=== PATIENT | female | born 1940 | race Caucasian/White ===

== ENCOUNTER 2017-12-17 07:20 | Emergency (ER) | payer MEDICARE ==
[2017-12-17 08:30] VITALS: TEMP 97.7
--- NOTE | 2017-12-17 09:03 | ED ---
ENT HPI - General Chief complaint: ENT Stated complaint: Nosebleed Time Seen by Provider: 12/17/17 07:33 Source: patient, family, EMS Mode of arrival: EMS Limitations: no limitations - History of Present Illness Initial comments: 77 years O female presents with a nosebleed, it started about an hour ago cording to the family and the patient she is not on any blood thinner she does have a history of hypertension and COPD he also has a history of CVA or TIA and diabetes in the past she denies any trauma to the nose. Review of system is negative for any headaches no chest pain or shortness of breath no abdominal pain no frequency urgency dysuria she does use home oxygen - Related Data Home Medications Medication Instructions Recorded Confirmed Aspirin [Adult Low Dose Aspirin EC] 81 mg PO DAILY 12/17/17 12/17/17 Atorvastatin [Lipitor] 80 mg PO HS 12/17/17 12/17/17 Lansoprazole 15 mg PO DAILY 12/17/17 12/17/17 Levothyroxine Sodium [Synthroid] 112 mcg PO DAILY 12/17/17 12/17/17 Magnesium Oxide [Patricia] 500 mg PO DAILY 12/17/17 12/17/17 Methenamine Hippurate 1 gm PO DAILY 12/17/17 12/17/17 Sodium Bicarbonate Tab 650 mg PO BID 12/17/17 12/17/17 Trospium Chloride [Sanctura XR] 60 mg PO DAILY 12/17/17 12/17/17 diphenhydrAMINE HCL 50 mg PO HS 12/17/17 12/17/17 [Diphenhydramine HCl] Previous Rx's Medication Instructions Recorded Cephalexin [Keflex] 500 mg PO Q6HR #40 cap 12/17/17 Allergies Allergy/AdvReac Type Severity Reaction Status Date / Time Penicillins Allergy Unknown Verified 12/17/17 08:12 Review of Systems ROS Statement: Those systems with pertinent positive or pertinent negative responses have been documented in the HPI. ROS Other: All systems not noted in ROS Statement are negative. Past Medical History Past Medical History: CVA/TIA, Dementia, Diabetes Mellitus, Hypertension Additional Past Medical History / Comment(s): Per caregiver - has dementia; ileostomy History of Any Multi-Drug Resistant Organisms: None Reported Past Surgical History: Bowel Resection Past Psychological History: Anxiety Smoking Status: Former smoker Past Alcohol Use History: None Reported Past Drug Use History: None Reported General Exam - General Exam Comments Initial Comments: General: The patient is awake and alert, in no distress, and does not appear acutely ill. Skin: Skin is warm and dry and no rashes or lesions are noted. Eye: Pupils are equal, round and reactive to light, extra-ocular movements are intact; there is normal conjunctiva bilaterally. Ears, nose, mouth and throat: Some bleeding from the both nostrils left more than the right Neck: The neck is supple, there is no tenderness or JVD. Cardiovascular: There is a regular rate and rhythm. No murmur, rub or gallop is appreciated. Respiratory: To auscultation bilateral, no wheezing no rhonchi no distress respiratory vital noticed Gastrointestinal: Soft, non-distended, non-tender abdomen without masses or organomegaly noted. There is no rebound or guarding present. Bowel sounds are unremarkable. Back: There is no tenderness to palpation in the midline. There is no obvious deformity. Musculoskeletal: Normal ROM, no tenderness, There is no pedal edema. There is no calf tenderness or swelling. No cords were appreciated. Neurological: CN II-XII intact, Cranial nerves III through XII are intact. There are no obvious motor or sensory deficits. Coordination appears grossly intact. Speech is normal. Psychiatric: Cooperative, appropriate mood & affect, normal judgment. Limitations: no limitations Course Vital Signs 12/17/17 12/17/17 07:24 08:16 Temperature 96.5 F L 97.7 F Pulse Rate 120 H 104 H Respiratory 20 18 Rate Blood Pressure 128/73 102/55 O2 Sat by Pulse 87 L 94 L Oximetry Is in the packing was done on the both sides after suction with the [place] patient was observed for about an hour after the packing there was no bleeding after that she be discharged home to come back for the removal of the packing every 6 hours or return to the ER if bleeding or nosebleeds the course Disposition Clinical Impression: Epistaxis, Sinusitis Disposition: HOME SELF-CARE Condition: Good Instructions: Nosebleed (ED) Additional Instructions: Current to the ER for the removal of the packing in 36 hours Prescriptions: Cephalexin [Keflex] 500 mg PO Q6HR #40 cap Is patient prescribed a controlled substance at d/c from ED?: No When asked, does pt state using other controlled substances?: No If prescribed controlled substance>3 days was MAPS reviewed?: No If opioid is for acute pain is fill amount 7 days or less?: No If Rx opioid, was Start Talking consent form obtained?: No Referrals: Diego Bhardwaj DO [Primary Care Provider] - 1-2 days
[2017-12-17 09:27] VITALS: BP 103/61; PULSE 98; RESP 16
--- NOTE | 2017-12-20 08:37 | CDI ---
Documentation Clarification OP Dear Clarissa ALMODOVAR MD As reviewed the chart, the packing material is not documented. Please provide the addendum for packing material to code the procedure. Thank you, Maggie Fong Thread Drawer If you have any question, Please contact information systems security manager at [phone] [facility]
== END 2017-12-17 09:23 | disposition home or self-care (01) ==
LOC: EC 07:20
DX: R04.0 Epistaxis (principal); J32.9 Chronic sinusitis, unspecified; Z86.73 Personal history of transient ischemic attack (TIA), and cerebral infarction without residual deficits; Z87.891 Personal history of nicotine dependence; Z79.82 Long term (current) use of aspirin; Z79.899 Other long term (current) drug therapy; Z88.0 Allergy status to penicillin
CPT/HCPCS: 30901; 99283

== ENCOUNTER 2017-12-17 21:04 | Emergency (ER) | payer MEDICARE ==
[2017-12-17 21:19] VITALS: BP 110/70; PULSE 112; RESP 20; TEMP 98.7
[2017-12-17] MEDS ORDERED: OXYMETAZOLINE 0.05% NASL SPRAY 1 SPRAY BOTTLE NASAL STA (21:56)
[2017-12-17] MEDS ORDERED: OXYMETAZOLINE 0.05% NASL SPRAY 1 SPRAY BOTTLE ONE (21:57)
--- NOTE | 2017-12-17 22:03 | ED ---
General Adult HPI - General Chief complaint: ENT Stated complaint: Nose Bleed Time Seen by Provider: 12/17/17 21:41 Source: patient, family, RN notes reviewed, old records reviewed Mode of arrival: ambulatory Limitations: no limitations - History of Present Illness Initial comments: Chief complaint history of present illness a 77-year-old female here with her son. The patient was in emergency room earlier this morning and epistaxis. At that time was treated with bilateral Merocel. Son reports that he was told to return in 36 hours to have the packing removed or see his family doctor or return emergency room should the bleeding. He did notice that there was some bleeding through the edges through the dampened sponges. They have not been placing any Afrin drops. - Related Data Home Medications Medication Instructions Recorded Confirmed Aspirin [Adult Low Dose Aspirin EC] 81 mg PO DAILY 12/17/17 12/17/17 Atorvastatin [Lipitor] 80 mg PO HS 12/17/17 12/17/17 Lansoprazole 15 mg PO DAILY 12/17/17 12/17/17 Levothyroxine Sodium [Synthroid] 112 mcg PO DAILY 12/17/17 12/17/17 Magnesium Oxide [Patricia] 500 mg PO DAILY 12/17/17 12/17/17 Methenamine Hippurate 1 gm PO DAILY 12/17/17 12/17/17 Sodium Bicarbonate Tab 650 mg PO BID 12/17/17 12/17/17 Trospium Chloride [Sanctura XR] 60 mg PO DAILY 12/17/17 12/17/17 diphenhydrAMINE HCL 50 mg PO HS 12/17/17 12/17/17 [Diphenhydramine HCl] Previous Rx's Medication Instructions Recorded Cephalexin [Keflex] 500 mg PO Q6HR #40 cap 12/17/17 Allergies Allergy/AdvReac Type Severity Reaction Status Date / Time Penicillins Allergy Unknown Verified 12/17/17 21:18 Review of Systems ROS Statement: Those systems with pertinent positive or pertinent negative responses have been documented in the HPI. Review of systems no other complaints other than the son saying that there was some bleeding around the sponges when she sneezed. Currently none. Review of vital signs within normal limits blood pressure 110/70. Pulse ox 94% room air. The patient is on oxygen 24 7. Its been through a nasal cannula without being aerosolized so son is doing this at home. ROS Other: All systems not noted in ROS Statement are negative. Past Medical History Past Medical History: CVA/TIA, Dementia, Diabetes Mellitus, Hypertension Additional Past Medical History / Comment(s): Per caregiver - has dementia; ileostomy History of Any Multi-Drug Resistant Organisms: None Reported Past Surgical History: Bowel Resection Past Psychological History: Anxiety Smoking Status: Former smoker Past Alcohol Use History: None Reported Past Drug Use History: None Reported General Exam - General Exam Comments Initial Comments: Physical exam Pertinent to the repeat visit his bleeding around the gauze inserted in both nares for epistaxis this morning. No bleeding at this time. Vital signs temp 98.7 pulse 112 respiratory rate 20 pulse ox 94% room air. Blood pressure 110/ 70. No difficulty breathing. The patient will have Afrin drops placed in both nares on the Merocel sponges every several hours. I explained to the son that there will be some dripping of blood tinged fluid. He is to follow-up with emergency room have these removed in 36 hours or earlier as needed. Limitations: no limitations Course Vital Signs 12/17/17 21:15 Temperature 98.7 F Pulse Rate 112 H Respiratory 20 Rate Blood Pressure 110/70 O2 Sat by Pulse 94 L Oximetry Medical Decision Making - Medical Decision Making Medical decision-making. Patient's son brought her back because he noticed some bleeding from the sponges when she sneezed. There is no pulsatile bleeding and there is no bleeding posteriorly. Examination finds the Merocel packing to be effective. A small amount of blood is noted when she does sneezed hard. The sponges were gently pressed and 8 blood-tinged fluid removed. I instilled several drops of Afrin in both sponges and told the son to continue do this every several hours at home. He is to gently squeeze the sponges to get the old fluid out and to expect a small amount of blood-tinged fluid when doing so. Disposition Clinical Impression: Recurrent epistaxis Disposition: HOME SELF-CARE Condition: Fair Instructions: Nosebleed (ED) Additional Instructions: Put several drops of Afrin on each nasal sponge as directed. Gently blot the sponges to remove the excess fluid. Return in 36 hours here to have the sponges removed or 3 your family physician. Is patient prescribed a controlled substance at d/c from ED?: No Referrals: Diego Bhardwaj DO [Primary Care Provider] - 1-2 days Time of Disposition: 22:03
== END 2017-12-17 22:09 | disposition home or self-care (01) ==
LOC: EC 21:04
DX: R04.0 Epistaxis (principal); I10 Essential (primary) hypertension; Z87.891 Personal history of nicotine dependence; Z86.73 Personal history of transient ischemic attack (TIA), and cerebral infarction without residual deficits; Z79.82 Long term (current) use of aspirin; Z79.899 Other long term (current) drug therapy; Z88.0 Allergy status to penicillin
CPT/HCPCS: 99283

== ENCOUNTER 2017-12-19 13:09 | Emergency (ER) | payer MEDICARE ==
[2017-12-19 13:18] VITALS: BP 105/58; PULSE 95; RESP 18; TEMP 98
--- NOTE | 2017-12-19 14:52 | ED ---
General Adult HPI - General Chief complaint: ENT Stated complaint: needs nose plugs removed-revisit Time Seen by Provider: 12/19/17 14:22 Source: patient, family, RN notes reviewed, old records reviewed Mode of arrival: EMS Limitations: physical limitation - History of Present Illness Initial comments: This is a 77-year-old female the ER for evaluation of, no step and removal. Patient had episodic nosebleed 2-3 days ago, she is coming in today for packing removal. She denies any complaints no active bleeding - Related Data Home Medications Medication Instructions Recorded Confirmed Aspirin [Adult Low Dose Aspirin EC] 81 mg PO DAILY 12/17/17 12/19/17 Atorvastatin [Lipitor] 80 mg PO HS 12/17/17 12/19/17 Levothyroxine Sodium [Synthroid] 112 mcg PO DAILY 12/17/17 12/19/17 Methenamine Hippurate 1 gm PO DAILY 12/17/17 12/19/17 Sodium Bicarbonate Tab 650 mg PO BID 12/17/17 12/19/17 Trospium Chloride [Sanctura XR] 60 mg PO DAILY 12/17/17 12/19/17 diphenhydrAMINE HCL 50 mg PO HS 12/17/17 12/19/17 [Diphenhydramine HCl] Acetaminophen Tab [Tylenol Tab] 325 mg PO Q4H PRN 12/19/17 12/19/17 Albuterol Nebulized [Ventolin 2.5 mg INHALATION RT-Q4H 12/19/17 12/19/17 Nebulized] Cyanocobalamin [Vitamin B-12] 500 mcg PO DAILY 12/19/17 12/19/17 Insulin Detemir [Levemir Flextouch] 20 units SQ HS 12/19/17 12/19/17 Magnesium Oxide [Mag-Ox] 400 mg PO DAILY 12/19/17 12/19/17 Tolterodine Tartrate [Detrol LA] 4 mg PO DAILY 12/19/17 12/19/17 Previous Rx's Medication Instructions Recorded Cephalexin [Keflex] 500 mg PO Q6HR #40 cap 12/17/17 Allergies Allergy/AdvReac Type Severity Reaction Status Date / Time Penicillins Allergy Unknown Verified 12/19/17 14:16 Review of Systems ROS Statement: Those systems with pertinent positive or pertinent negative responses have been documented in the HPI. ROS Other: All systems not noted in ROS Statement are negative. Past Medical History Past Medical History: CVA/TIA, Dementia, Diabetes Mellitus, Hypertension Additional Past Medical History / Comment(s): Per caregiver - has dementia; ileostomy History of Any Multi-Drug Resistant Organisms: None Reported Past Surgical History: Bowel Resection Past Psychological History: Anxiety Smoking Status: Former smoker Past Alcohol Use History: None Reported Past Drug Use History: None Reported General Exam - General Exam Comments Initial Comments: Bilateral nose packing is present Limitations: physical limitation General appearance: alert, in no apparent distress Head exam: Present: atraumatic, normocephalic, normal inspection Eye exam: Present: normal appearance, PERRL, EOMI. Absent: scleral icterus, conjunctival injection, periorbital swelling ENT exam: Present: normal exam, mucous membranes moist Neck exam: Present: normal inspection. Absent: tenderness, meningismus, lymphadenopathy Respiratory exam: Present: normal lung sounds bilaterally. Absent: respiratory distress, wheezes, rales, rhonchi, stridor Cardiovascular Exam: Present: regular rate, normal rhythm, normal heart sounds. Absent: systolic murmur, diastolic murmur, rubs, gallop, clicks GI/Abdominal exam: Present: soft, normal bowel sounds. Absent: distended, tenderness, guarding, rebound, rigid Extremities exam: Present: normal inspection, full ROM, normal capillary refill. Absent: tenderness, pedal edema, joint swelling, calf tenderness Back exam: Present: normal inspection Neurological exam: Present: alert, oriented X3, CN II-XII intact Psychiatric exam: Present: normal affect, normal mood Skin exam: Present: warm, dry, intact, normal color. Absent: rash Course Vital Signs 12/19/17 13:14 Temperature 98.0 F Pulse Rate 95 Respiratory 18 Rate Blood Pressure 105/58 O2 Sat by Pulse 97 Oximetry - Reevaluation(s) Reevaluation #1: Packing is removed without difficulty Medical Decision Making - Medical Decision Making 68 female the ER forremoval, packing is removed without difficulty. Patient to be discharged home, currently a symptomatically with no bleeding Disposition Clinical Impression: Epistaxis Narrative: Nasal Packing Removal Disposition: HOME SELF-CARE Condition: Good Instructions: Nosebleed (ED) Is patient prescribed a controlled substance at d/c from ED?: No Referrals: Diego Bhardwaj DO [Primary Care Provider] - 1-2 days
== END 2017-12-19 15:08 | disposition home or self-care (01) ==
LOC: EC 13:09
DX: R04.0 Epistaxis (principal); I10 Essential (primary) hypertension; E11.9 Type 2 diabetes mellitus without complications; F03.90 Unspecified dementia, unspecified severity, without behavioral disturbance, psychotic disturbance, mood disturbance, and anxiety; Z87.891 Personal history of nicotine dependence; Z79.4 Long term (current) use of insulin; Z79.82 Long term (current) use of aspirin; Z79.899 Other long term (current) drug therapy; Z88.0 Allergy status to penicillin
CPT/HCPCS: 99282

== ENCOUNTER → 2018-04-04 | Outpatient (CLI) | payer MEDICARE ==
--- NOTE | 2018-04-04 15:06 | US ---
EXAMINATION TYPE: US kidneys/renal and bladder DATE OF EXAM: 04/04/2018 COMPARISON: NONE CLINICAL HISTORY: 78-year-old female Stage IV Chronic Kidney Disease N18.4. CKD stage 4. History of k idney stones TECHNIQUE: Multiple sonographic images of the kidneys and bladder are obtained. FINDINGS: EXAM MEASUREMENTS: Right Kidney: 9.8 x 4.4 x 4.5 cm Left Kidney: 11.1 x 4.7 x 4.4 cm PER DIEM REGISTERED NURSE NOTES:Technical limitations due to large amount of overlying bowel content Right Kidney: multiple cortical cysts are demonstrated, largest = 2.7 x 2.1 x 2.7cm . No hydronephro sis seen. Left Kidney: echogenic in appearance with multiple cystic areas, largest = 2.6 x 2.2 x 2.6cm Bladder: Under distention limits evaluation. Bilateral Jets seen: no IMPRESSION: Technical limitations. No hydronephrosis seen. Multiple bilateral renal lesions appear to represent cysts measuring up to 2.7 cm.
== END | disposition home or self-care (01) ==
LOC: RADUSWWP 13:46
PROVIDERS: ATTEND Family Medicine
DX: N28.1 Cyst of kidney, acquired (principal); N18.4 Chronic kidney disease, stage 4 (severe)
CPT/HCPCS: 76770

== ENCOUNTER → 2018-10-19 | Outpatient (CLI) | payer MEDICARE ==
--- NOTE | 2018-10-19 16:33 | NM ---
EXAMINATION TYPE: NM pul vent and perfuse DATE OF EXAM: 10/19/2018 COMPARISON: NONE HISTORY: Abnormal coagulation profile with elevated d-dimer TECHNIQUE: Utilizing inhalation of 70.0 mCi Tc 99m DTPA aerosol and intravenous injection of 5.09 mC i of Tc 99m MAA, ventilation and perfusion images are acquired post injection in multiple projections . FINDINGS: Central clumping of particles on ventilation images suggest underlying COPD. There is poor uptake thr oughout the left lung on ventilation and perfusion images. Some small matching defects in the left rosemary ng are identified. IMPRESSION: Intermediate or indeterminate probability for pulmonary embolism.
--- NOTE | 2018-10-19 17:54 | US ---
EXAMINATION TYPE: US venous doppler duplex LE BI DATE OF EXAM: 10/19/2018 5:02 PM COMPARISON: NM/VQ scan today CLINICAL HISTORY: R79.1 Abnormal coagulation profile, elevated D-Dim. SIDE PERFORMED: Bilateral TECHNIQUE: The lower extremity deep venous system is examined utilizing real time linear array sonog carlos with graded compression, doppler sonography and color-flow sonography. VESSELS IMAGED: Common Femoral Vein Deep Femoral Vein Greater Saphenous Vein * Femoral Vein Popliteal Vein Small Saphenous Vein * Proximal Calf Veins (* superficial vessels) Right Leg: Echogenic wall changes are noted at upper Femoral Vein at valves with additional intimal wall changes mid and lower Femoral Vein and may suggest non occluding chronic vein thrombosis. Right Femoral Vein compresses to wall changes. Left Leg: Echogenic wall changes note in upper Left Deep Femoral Vein at valve and may also suggest non occluding chronic vein thrombosis. Large, complex left Popliteal Fossa cyst is seen = 5.7 x 3.2 x 2.2cm. Tech findings will be called to Dr Fragoso at exam's end. JJ IMPRESSION: No evidence of acute deep venous thrombosis. There is evidence of mild bilateral chronic deep venous thrombosis.
== END ==
LOC: RADNMMAIN 15:17
PROVIDERS: ATTEND Family Medicine
DX: R79.1 Abnormal coagulation profile (principal)
CPT/HCPCS: 93970; 78582; A9540; A9567

== ENCOUNTER → 2018-11-02 | Outpatient (CLI) | payer MEDICARE ==
--- NOTE | 2018-11-02 15:03 | CT ---
EXAMINATION TYPE: CT abdomen pelvis wo con DATE OF EXAM: 11/02/2018 COMPARISON: None HISTORY: abdominal pain CT DLP: 815.1 mGycm Automated exposure control for dose reduction was used. TECHNIQUE: Helical acquisition of images was performed from the lung bases through the pelvis. FINDINGS: LUNG BASES: No significant abnormality is appreciated. LIVER/GB: There are benign hepatic cysts measuring 2.0 cm and 9 mm. Remainder of the unenhanced liver is unremarkable. Few gallstones layer within the gallbladder body dependently. The liver is enlarged extending past the iliac crest and to the left upper quadrant. PANCREAS: No significant abnormality is seen. SPLEEN: No significant abnormality is seen. ADRENALS: No significant abnormality is seen. KIDNEYS: There are multiple bilateral renal cysts. Additionally there is a hyperdense solid appearing left renal mass within average Hounsfield unit of 53 measuring 1.5 cm emanating from the left upper pole exophytically at its lateral margin. Other too small to accurately characterize hyperdense right renal lesion is seen near the minor calyx on series 3 image 30. No hydronephrosis of either kidney. No nephrolithiasis. FREE AIR: No free air is visualized ADENOPATHY: No greater than 1 cm short axis lymph node in the abdomen or pelvis. REPRODUCTIVE ORGANS: No significant abnormality is seen URINARY BLADDER: Incompletely distended. OSSEOUS STRUCTURES: Moderate degenerative changes are seen of the femoral acetabular joints bilatera lly. Extensive degenerative changes are present of the lumbar spine with reversal of usual lumbar chris dosis. There is also extensive compression deformity of the T12 vertebral body with extensive surroun ding degenerative disc disease. Grade 1 anterolisthesis of L1 on L2 is seen with minimal retrolisthes is of L2 on L3 and L3 on L4. BOWEL: Right lower quadrant diverting ostomy is present. Partial colectomy has been performed. No di lated large or small bowel. OTHER: There is tortuosity of the densely calcified abdominal aorta. IMPRESSION: 1. Hyperdense solid left renal mass. Three-phase CT abdomen (renal mass protocol is recommended. If t his patient cannot receive contrast renal ultrasound would be recommended to assess for increased thr ough transmission and internal vascular flow of this lateral exophytic mass. 2. Extensive degenerative changes of the spine with compression deformity of T12 reversal of the usua l lumbar lordosis and multilevel malalignment. 3. Multiple bilateral renal cysts and benign hepatic cysts. 4. Cholelithiasis.
--- NOTE | 2018-11-02 19:18 | ECHOF ---
Referral Reason:I50.32 Chronic Diastolic CHF MEASUREMENTS -------- HEIGHT: 157.5 cm WEIGHT: 63.5 kg BP: RVIDd: 3.3 cm (< 3.3) IVSd: 1.6 cm (0.6 - 1.1) LVIDd: 3.5 cm (3.9 - 5.3) LVPWd: 1.4 cm (0.6 - 1.1) IVSs: 1.6 cm LVIDs: 3.0 cm LVPWs: 1.9 cm LAESV Index (A-L): 20.41 ml/m Ao Diam: 3.3 cm (2.0 - 3.7) AV Cusp: 1.3 cm (1.5 - 2.6) LA Diam: 4.5 cm (2.7 - 3.8) MV EXCURSION: 13.275 mm (> 18.000) MV EF SLOPE: 44 mm/s (70 - 150) EPSS: 0.3 cm MV E Rob: 0.42 m/s MV DecT: 269 ms MV A Rob: 0.83 m/s MV E/A Ratio: 0.51 AR PHT: 332 ms RAP: 5.00 mmHg RVSP: 25.37 mmHg FINDINGS -------- Sinus rhythm. This was a technically adequate study. The left ventricular size is normal. There is mild concentric left ventricular hypertrophy. Overa ll left ventricular systolic function is low-normal with, an EF between 50 - 55 %. . suboptimal vi ews. lv function could not be accurately assessed. repeat study with contrast may be helpful. The right ventricle is normal in size. The left atrial size is normal. The right atrial size is normal. There is mild aortic valve sclerosis. There is mild aortic regurgitation. Mild mitral annular calcification present. Moderate mitral regurgitation is present. Mild tricuspid regurgitation present. There is no evidence of pulmonary hypertension. The right v entricular systolic pressure, as measured by Doppler, is 25.37mmHg. Trace/mild (physiologic) pulmonic regurgitation. The aortic root size is normal. There is no pericardial effusion. CONCLUSIONS -------- 1. The left ventricular size is normal. 2. There is mild concentric left ventricular hypertrophy. 3. . suboptimal views. lv function could not be accurately assessed. repeat study with contrast ma y be helpful. 4. The right ventricle is normal in size. 5. The left atrial size is normal. 6. The right atrial size is normal. 7. There is mild aortic valve sclerosis. 8. There is mild aortic regurgitation. 9. Mild mitral annular calcification present. 10. Moderate mitral regurgitation is present. 11. Mild tricuspid regurgitation present. 12. There is no evidence of pulmonary hypertension. 13. The right ventricular systolic pressure, as measured by Doppler, is 25.37mmHg. 14. Trace/mild (physiologic) pulmonic regurgitation. 15. The aortic root size is normal. 16. There is no pericardial effusion. CONCRETE POURER: Myrtle Monroe RDCS
== END | disposition home or self-care (01) ==
LOC: EEVIPCON 10-22 13:00 → RADECHMAIN 12:07
PROVIDERS: ATTEND Family Medicine
DX: K80.20 Calculus of gallbladder without cholecystitis without obstruction (principal); N28.1 Cyst of kidney, acquired; N28.89 Other specified disorders of kidney and ureter; K76.89 Other specified diseases of liver; I08.3 Combined rheumatic disorders of mitral, aortic and tricuspid valves; I11.0 Hypertensive heart disease with heart failure; I50.32 Chronic diastolic (congestive) heart failure
CPT/HCPCS: 36415; 74176; 82565; 84520; 93306